=== PATIENT | male | born 1955 | race Caucasian/White ===

== ENCOUNTER 2019-07-12 07:39 | Day surgery (SDC) | payer BC ==
[~2019-07-12 07:39] MED LIST: Lactated Ringers 1,000 ML IV SCH
[2019-07-12] MEDS ORDERED: Lidocaine 1% PF 2 ML SDV INJECT ONE (07:40)
[2019-07-12] MEDS ORDERED: Propofol 200 MG/20 ML SDV IV ONE (07:40)
[2019-07-12] MEDS ORDERED: Lactated Ringers 1,000 ML IV SCH (07:45)
[2019-07-12] MEDS ORDERED: Sodium Chloride 0.9% 10 ML Syringe FLUSH PRN (07:45)
--- NOTE | 2019-07-12 10:34 | PCM.OPNOTE ---
- General Post-Op/Procedure Note Date of Surgery/Procedure: 07/12/19 Operative Procedure(s): c scope Findings: nl exam Pre Op Diagnosis: colon cancer screening Post-Op Diagnosis: Same Anesthesia Technique: MAC Primary Surgeon: Charlie Mata Anesthesia Provider: Doug Ryan Pathology: none Complications: None Condition: Good Free Text/Narrative:: see dictation
--- NOTE | 2019-07-12 16:19 | OR ---
DATE OF OPERATION: 07/12/2019 SURGEON: Charlie Mata MD PROCEDURE PERFORMED: Colonoscopy. PREOPERATIVE DIAGNOSIS: Need for screening colonoscope. POSTOPERATIVE DIAGNOSIS: Normal scope. INDICATIONS FOR PROCEDURE: This is a 63-year-old white male, who presents for screening colonoscopy. DESCRIPTION OF OPERATION: After an excellent IV sedation was administered, digital rectal exam was performed. No marked abnormality was noted. The flexible colonoscope was inserted and advanced to the cecum. Prep was adequate. There were some areas that we had to irrigate, but we did get an excellent view of the mucosa. Following findings were noted: Ascending colon, unremarkable. Transverse colon, unremarkable. Descending colon, unremarkable. Sigmoid and rectum, unremarkable. Colon was deflated as the scope was removed. The patient tolerated the procedure well. RECOMMENDATIONS: Repeat colonoscopy in 10 years. /[id number] /MODL
== END 2019-07-12 11:08 | disposition home or self-care (01) ==
LOC: FB.SDS 07:39
PROVIDERS: ATTEND Surgery
DX: Z12.11 Encounter for screening for malignant neoplasm of colon (principal); Z79.82 Long term (current) use of aspirin; Z88.2 Allergy status to sulfonamides
CPT/HCPCS: 45378; J2001; J2704; J7120